=== PATIENT | male | born 1995 | race Hispanic/Latino ===

== ENCOUNTER 2018-09-29 18:56 | Emergency (ER) | payer OTHER ==
[2018-09-29] MEDS ORDERED: IBUPROFEN 600 MG TABLET ONE (19:12)
[2018-09-29] MEDS ORDERED: LIDOCAINE HCL 1% 20 ML VIAL ONE (19:20)
== END 2018-09-29 20:02 | disposition home or self-care (01) ==
LOC: EDH 18:56
DX: S61.211A Laceration without foreign body of left index finger without damage to nail, initial encounter (principal); S61.213A Laceration without foreign body of left middle finger without damage to nail, initial encounter; Z98.890 Other specified postprocedural states; W26.0XXA Contact with knife, initial encounter; Y93.G3 Activity, cooking and baking; Y92.69 Other specified industrial and construction area as the place of occurrence of the external cause; Y99.8 Other external cause status
CPT/HCPCS: 12001; 73140